=== PATIENT | female | born 2005 | race Caucasian/White ===

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

== ENCOUNTER 2023-01-05 16:10 | Emergency (ER) | payer MEDICAID, SELFPAY ==
[2023-01-05 16:26] VITALS: BP 115/70; PULSE 54; RESP 16; TEMP 36.6; O2SAT 99; BMI 17.8
[2023-01-05 17:24] LABS: Basophils % 0.4 %; Eosinophils # 0.2 10^3/uL (0.0-0.8); Eosinophils % 1.7 %; Hematocrit 38.5 % (37.0-47.0); Hemoglobin 12.5 g/dL (11.5-15.3); Lymphocytes # 1.3 10^3/uL (1.5-6.5); Mean Corpuscular HGB Conc 32.5 g/dL (30.0-36.0); Mean Corpuscular Volume 89.3 fl (81-99); Mean Platelet Volume 11.3 fL (7.4-10.4); Monocytes # 0.6 10^3/uL (0.2-0.9); Monocytes % 6.5 %; Neutrophils # 6.92 10^3/uL (1.8-8.0); Neutrophils % 77.2 %; Nucleated Red Blood Cells % 0 %; Platelet Count 226 10^3/cmm (130-400); Red Blood Count 4.31 10^6/uL (4.1-5.3)
--- NOTE | 2023-01-05 17:34 | USR_ITS ---
PROCEDURE INFORMATION: Exam: US Nonobstetric Pelvis; Complete Exam date and time: 01/05/2023 5:44 PM Age: 17 years old Clinical indication: Pain; Other: Menstral cramping; Additional info: Pelvic cramping pain on period LABS AND CLINICAL REPORTS: Last menstrual period start date: 01/02/2023 TECHNIQUE: Imaging protocol: Transabdominal pelvic nonobstetric ultrasound. Complete exam. Real time ultrasound with image documentation. COMPARISON: No relevant prior studies available. FINDINGS: Uterus: Uterus is normal. Endometrial stripe is normal. Right ovary/adnexa: Ovary is normal. No mass. Normal blood flow. Left ovary/adnexa: Ovary is normal. No mass. Normal blood flow. Intraperitoneal space: No intraperitoneal fluid. Urinary bladder: Normal. US/US pelvic complete* [id number] IMPRESSION: No acute findings.
--- NOTE | 2023-01-05 17:37 | ED_ITS ---
HPI - Abdominal Pain General: Chief Complaint: Abdominal Pain Stated Complaint: lower abd pain Time Seen by Provider: 01/05/23 17:20 History of Present Illness: Pt is a 17 y/o Female who comes to the ED with Pelvic cramping pain. Pt started period 01/02/23. Patient states she usually has painful periods but states that this 1 has been worse than previous ones. Patient says her menstrual periods come around every month and she states they last for approximately 1 week. Denies any heavy bleeding during current menstrual period. She states that her cramping pain is worse than its been in the past and was not improving with Tylenol and Motrin. Patient did take another dose of Motrin before coming to the ED and now she states her cramping pain is a 3 out of 10. Denies any fevers, nausea/vomiting, other abdominal pain, heavy bleeding, dysuria, hematuria, blood in stool, constipation or diarrhea. Associated Symptoms: Denies chills, constipation, diarrhea, dysuria, fever(s), hematochezia, hematuria, nausea and vomiting Review of Systems Const: Denies: fever(s), chills or fatigue Eyes: Denies: change in vision or eye discomfort ENMT: Denies: throat pain, odynophagia, nasal discharge or nasal congestion Card: Denies: chest pain, palpitations, edema, swelling of feet/ankles, dyspnea on exertion or orthopnea Resp: Denies: dyspnea, productive cough or non-productive cough GI: Denies: abdominal pain, nausea, vomiting, diarrhea, constipation or hematochezia : Reports: vaginal bleeding (On menstrual period-normal bleeding) and dysmenorrhea; Denies: flank pain, dysuria, hematuria or change in menstrual flow Musc: Denies: neck pain, back pain or extremity swelling Skin/Breast: Denies: rash or new lesions Neuro: Denies: headache(s), numbness in extremities or weakness in extremities [facility] ED PFSH: Medical History (Updated 01/06/23 @ 00:56 by LINDA Herndon) No pertinent family history Surgical History (Updated 01/06/23 @ 00:56 by LINDA Herndon) No pertinent past surgical history Physical Exam Const: COMMON NORMALS: patient oriented x3 HENMT: COMMON NORMALS: normocephalic HEAD & SCALP: normocephalic MOUTH: Normal oral and palatal mucosa present THROAT: posterior oropharynx normal and uvula midline Neck/C-Spine: COMMON NORMALS: supple GENERAL: Yes normal visual inspection Resp: COMMON NORMALS: normal respiratory effort, No retractions, No use of accessory muscles and clear to auscultation bilaterally AUSCULTATION: clear t o auscultation bilaterally Cardio: COMMON NORMALS: regular rate, regular rhythm, S1 normal heart sound present, S2 normal heart sound present, No gallops present (Cardio), No clicks present (Cardio), No murmurs present (Cardio) and Peripheral pulses 2+ throughout RATE: regular rate RHYTHM: regular rhythm HEART SOUNDS: S1 normal heart sound present and S2 normal heart sound present PERIPHERAL PULSES: Peripheral pulses 2+ throughout GI: COMMON NORMALS: Normal to inspection, nondistended, normoactive bowel sounds present, Soft to palpation, non-tender and no masses PALPATION: Yes Soft to palpation : COMMON NORMALS: Yes no CVA tenderness BLADDER/KIDNEY EXAM: Yes no CVA tenderness Back/Pelvis: COMMON NORMALS: no CVA tenderness Extremity: COMMON NORMALS: normal to inspection Neuro: COMMON NORMALS: patient oriented x3 GAIT: Yes Normal gait present Skin: GENERAL SKIN EXAM: dry skin Course Vital Signs: Vital signs: Vital Signs Temperature 97.9 F 01/05/23 16:26 Pulse Rate 54 L 01/05/23 16:26 Respiratory Rate 16 01/05/23 16:26 Blood Pressure 115/70 01/05/23 16:26 Pulse Oximetry 99 01/05/23 16:26 Oxygen Delivery Me thod Room Air 01/05/23 16:26 MDM - Abdominal Pain Medical Decision Making Pt is a 17 y/o Female who comes to the ED with Pelvic cramping pain. Pt started period 01/02/23. Patient states she usually has painful periods but states that this 1 has been worse than previous ones. Patient says her menstrual periods come around every month and she states they last for approximately 1 week. Denies any heavy bleeding during current menstrual period. She states that her cramping pain is worse than its been in the past and was not improving with Tylenol and Motrin. Patient did take another dose of Motrin before coming to the ED and now she states her cramping pain is a 3 out of 10. Denies any fevers, nausea/vomiting, other abdominal pain, heavy bleeding, dysuria, hematuria, blood in stool, constipation or diarrhea. Vitals are stable. Patient appears nontoxic in no acute distress or pain. Exam is benign. Labs are all unremarkable. Ultrasound of pelvis shows no acute findings. Patient was diagnosed with dysmenorrhea and stable for discharge home. I placed an order with case management for patient be referred to women's health clinic for further evaluation of dysmenorrhea. Return to ED precautions given. Patient understood and agreed with plan. Lab Data I reviewed the patient's lab results. 01/05/23 17:00 01/05/23 17:00 Labs/Radiology: Radiology Impressions Pelvis Ultrasound 01/05/23 17:34 IMPRESSION: No acute findings. Laboratory Results WBC 9.0 10^3/uL (4.5-13.0) 01/05/23 17:00 RBC 4.31 10^6/uL (4.1-5.3) 01/05/23 17:00 Hgb 12.5 g/dL (11.5-15.3) 01/05/23 17:00 Hct 38.5 % (37.0-47.0) 01/05/23 17:00 MCV 89.3 fl (81-99) 01/05/23 17:00 MCH 29.0 pg (28.0-34.0) 01/05/23 17:00 MCHC 32.5 g/dL (30.0-36.0) 01/05/23 17:00 RDW 12.0 % (12.1-15.1) L 01/05/23 17:00 Plt Count 226 10^3/cmm (130-400) 01/05/23 17:00 MPV 11.3 fL (7.4-10.4) H 01/05/23 17:00 Neut % (Auto) 77.2 % 01/05/23 17:00 Lymph % (Auto) 14.0 % 01/05/23 17:00 [place] % (Auto) 6.5 % 01/05/23 17:00 Eos % (Auto) 1.7 % 01/05/23 17:00 Baso % (Auto) 0.4 % 01/05/23 17:00 Neut # (Auto) 6.92 10^3/uL (1.8-8.0) 01/05/23 17:00 Lymph # (Auto) 1.3 10^3/uL (1.5-6.5) L 01/05/23 17:00 [place] # (Auto) 0.6 10^3/uL (0.2-0.9) 01/05/23 17:00 Eos # (Auto) 0.2 10^3/uL (0.0-0.8) 01/05/23 17:00 Baso # (Auto) 0.0 10^3/uL (0.0-0.1) 01/05/23 17:00 Nucleated RBC % (auto) 0 % 01/05/23 17:00 Nucleated RBCs # 0.0 /100WBC 01/05/23 17:00 Sodium 140 mmol/L (136-145) 01/05/23 17:00 Potassium 4.0 mmol/L (3.5-5.1) 01/05/23 17:00 Chloride 106 mmol/L (98-107) 01/05/23 17:00 Carbon Dioxide 24 mmol/L (22-29) 01/05/23 17:00 Anion Gap 14.0 (5-19) 01/05/23 17:00 BUN 7 mg/dL (6-20) 01/05/23 17:00 Creatinine 0.5 mg/dL (0.5-0.9) 01/05/23 17:00 GFR Calculation 158.9 mL/min (90-130) H 01/05/23 17:00 Glucose 95 mg/dL (65-115) 01/05/23 17:00 Calculated Osmolality 288 mOsm/kg (285-295) 01/05/23 17:00 Calcium 8.6 mg/dL (8.5-10.5) 01/05/23 17:00 Total Bilirubin 1.1 mg/dL (0.15-1.2) 01/05/23 17:00 AST 14 U/L (0-32) 01/05/23 17:00 ALT 6 U/L (0-33) 01/05/23 17:00 Alkaline Phosphatase 39 U/L (35-105) 01/05/23 17:00 Total Protein 6.9 g/dL (6.6-8.7) 01/05/23 17:00 Albumin 4.3 g/dL (3.5-5.2) 01/05/23 17:00 Globulin 2.6 g/dL (1.3-4.6) 01/05/23 17:00 HCG, Qual Negative (Negative) 01/05/23 17:00 Urine Color Yellow (Yellow) 01/05/23 17:21 Urine Appearance Sl hazy (CLEAR) A 01/05/23 17:21 Urine pH 6 (5-7) 01/05/23 17:21 Ur Specific [place] 1.025 (1.005-1.030) 01/05/23 17:21 Urine Protein Neg (Negative) 01/05/23 17:21 Urine Glucose (UA) Norm (Normal) 01/05/23 17:21 Urine Ketones 1+ (Negative) H 01/05/23 17:21 Urine Blood 3+ (Negative) H 01/05/23 17:21 Urine Nitrate Negative (Negative) 01/05/23 17:21 Urine Bilirubin Neg (Negative) 01/05/23 17:21 Urine Urobilinogen Neg mg/dL (Negative) 01/05/23 17:21 Ur Leukocyte Esterase Negative (Negative) 01/05/23 17:21 Urine RBC 10-15 /hpf (0-2) H 01/05/23 17:21 Urine WBC 0-4 /hpf (0-5) H 01/05/23 17:21 Ur Squamous Epith Cells 0-4 /hpf (0-5) H 01/05/23 17:21 Amorphous Sediment 2+ /hpf 01/05/23 17:21 Urine Bacteria 1+ /hpf (NONE) H 01/05/23 17:21 Urine Mucus Trace /hpf 01/05/23 17:21 Discharge Plan Discharge Patient Disposition: Home Clinical Impression: Primary dysmenorrhea Condition: Stable Prescriptions: No Action No Known Home Medications Discharge Orders: Discharge ED (Routine); Ordered 01/05/23 Ordered By: Antonio Zhang Referrals: Lesley Lema MD [Primary Care Provider] - Discharge Diet: Regular Discharge Activity: Resume usual activity Patient Instructions: Dysmenorrhea (ED) Activity Restrictions/Additional Instructions: Follow-up with medical provider as directed. Case management should be contacted in the next several days to set up an appointment with women's health for follow-up. Take medications as prescribed. Return to the ER or your medical provider if condition worsens. Please read and understand discharge instructions. Thank you for choosing [facility] for your healthcare needs today. Please realize this is an emergency room and that we are providing you with a medical screening exam and this may not be complete and all inclusive of all the testing and or work up that you may need to determine your ailment or severity of your illness. It is very important that you follow up as instructed or that you return to the Emergency Department should you have concerns or if your condition changes or worsens in any way. Coding Level of Care Code ED [employer] Installer for Tu Garcia
[2023-01-05 17:58] LABS: HCG, Serum Qual Negative (Negative)
[2023-01-05 18:00] LABS: Add Urine Microscopic? YES; Bilirubin Urine Neg (Negative); Blood Urine 3+ (Negative); Glucose Urine UA Norm (Normal); Ketones Urine 1+ (Negative); Leukocyte Esterase Urine Negative (Negative); Nitrate Urine Negative (Negative); Protein Urine Neg (Negative); Specific Gravity, Urine 1.025 (1.005-1.030); Urine Appearance SL Hazy (CLEAR); Urine Color Yellow (Yellow); Urobilinogen Urine Neg (Negative); pH Urine 6 (5-7)
[2023-01-05 18:01] LABS: Add Urine Culture? Yes; Amorphous Sediment Urine 2+ /hpf; Bacteria Urine 1+ /hpf; Mucus Urine TRACE /hpf; Squamous Epithelial Cell Urine 0-4 /hpf (0-5); WBC Urine 0-4 /hpf (0-5)
[2023-01-05 18:03] LABS: Alanine Aminotransferase 6 U/L (0-33); Albumin Level 4.3 g/dL (3.5-5.2); Alkaline Phosphatase 39 U/L (35-105); Aspartate Amino Transferase 14 U/L (0-32); Blood Urea Nitrogen 7 mg/dL (6-20); Calcium 8.6 mg/dL (8.5-10.5); Carbon Dioxide 24 mmol/L (22-29); Chloride 106 mmol/L (98-107); Creatinine Clr Calc Pharmacy 164.6857; Globulin 2.6 g/dL (1.3-4.6); Glomerular Filtration Rate 158.9 mL/min (90-130); Glucose 95 mg/dL (65-115); Osmolality Calculated 288 mOsm/kg (285-295); Sodium 140 mmol/L (136-145); Total Bilirubin 1.1 mg/dL (0.15-1.2); Total Protein 6.9 g/dL (6.6-8.7)
--- NOTE | 2023-01-06 09:49 | DCPLANNER ---
Addendum entered by Soila Alfred 03/02/23 11:36: Patient had a follow up appointment scheduled with [facility] - patient did not attend appointment. Addendum entered by Soila Alfred 01/11/23 11:56: Patient has a follow up appointment scheduled for Wednesday, March 01, 2023 at 2:[address] Morris at [facility]. Original Note: manager shipping had message to schedule a follow up appointment for patient with [facility]. manager shipping sent patients information to the front office staff at [facility]. Patients information will be printed and reviewed. Clinic will call patient with appointment information.
== END 2023-01-05 19:11 | disposition home or self-care (01) ==
PROVIDERS: Physician Assistant; Emergency Provider Physician Assistant; PCP Family Medicine
DX: N94.4 Primary dysmenorrhea (principal)
CPT/HCPCS: 36415; 76856; 80053; 81001; 84703; 85025; 87086; 99284

== ENCOUNTER → 2023-03-22 15:20 | Outpatient (BNVA) | payer MEDICAID, SELFPAY | PROVIDERS: PCP Family Medicine; Visit Provider Obstetrics & Gynecology | DX: R63.4 Abnormal weight loss (principal) | CPT/HCPCS: 82728; 84146; 84443; 85025 ==

== ENCOUNTER 2023-04-05 06:15 | Outpatient (CLI) | payer MEDICAID, SELFPAY ==
--- NOTE | 2023-04-05 06:26 | USR_ITS ---
PROCEDURE INFORMATION: Exam: US Nonobstetric Pelvis; Complete Exam date and time: 04/05/2023 6:37 AM Age: 17 years old Clinical indication: Pain; Dysmenorrhea; Additional info: Dysmenorrhea.No history of trauma or recent surgery is provided. TECHNIQUE: Imaging protocol: Transabdominal pelvic nonobstetric ultrasound. Complete exam. Real time ultrasound with image documentation. 61image(s) are provided. Other technique: Grayscale, color images are provided. COMPARISON: US pelvic complete* [id number] 01/05/2023 5:44 PM FINDINGS: Uterus: The uterus measures 7.5 x 5.1 x 6.2 cm. The uterine echotexture is relatively homogeneous. The endometrial stripe measures 0.65 cm. No central uterine canal fluid is appreciated. Right ovary/adnexa: The right ovary is obscured. Left ovary/adnexa: The left ovary measures 4.8 x 3.7 x 2.1 cm. Color Doppler flow is demonstrated. There are subcentimeter left ovarian follicular cystic changes present. Bowel: There is some bowel gas artifact. Intraperitoneal space: No free fluid is appreciated. Urinary bladder: Unremarkable. US/US pelvic complete* [id number] IMPRESSION: 1. The left ovary is demonstrated with color flow appreciated. The right ovary is obscured. 2. No central uterine canal or cervix level fluid collections are appreciated. 3. No free fluid or pelvic mass is appreciated.
== END 2023-04-05 06:16 | disposition home or self-care (01) ==
PROVIDERS: PCP Family Medicine; Visit Provider Obstetrics & Gynecology
DX: N94.6 Dysmenorrhea, unspecified (principal)
CPT/HCPCS: 76856

== ENCOUNTER 2023-06-12 05:52 | Emergency (ER) | payer MEDICAID, SELFPAY ==
--- NOTE | 2023-06-12 05:57 | ECG_ITS ---
[facility] Test Date: 2023-06-12 Pat Name: Ara Ugarte Department: Room: Gender: Female Adapted Physical Education Aide: : 2005 Requested By: Calvin Goetz Order Number: [id number] Cheo MD: Wandy Holman M.D. Measurements Intervals [place] Rate: 60 P: 67 ME: 141 QRS: 68 QRSD: 88 T: 43 QT: 387 QTc: 388 Interpretive Statements SINUS RHYTHM POSSIBLE RIGHT VENTRICULAR CONDUCTION DELAY [RSR (QR) IN V1/V2] No previous ECG available for comparison Electronically Signed On 06-12-2023 11:59:18 CDT by Wandy Holman M.D. [email or web address]
[2023-06-12 05:58] VITALS: BP 115/73; PULSE 60; RESP 15; TEMP 36.4; O2SAT 100; BMI 17.2
--- NOTE | 2023-06-12 06:02 | ED_ITS ---
HPI - Abdominal Pain General: Chief Complaint: Urogenital-Female Stated Complaint: Passes out\Cant Pee\Dizzy Time Seen by Provider: 06/12/23 05:56 Source: patient Mode of arrival: ambulatory Limitations: no limitations History of Present Illness: 17-year-old female who has had a history of dysmenorrhea states that she is 6 days late for her. She woke up this morning to the bathroom was having severe lower abdominal cramping states that cramping pain is a 6 out of 10 she went to the bathroom and she had had a syncopal episode she denies any chest pain denies any headache. She taken ibuprofen states her pains improved. Associated Symptoms: Reports dysuria and syncope; Denies chills, diarrhea, fever(s), nausea and vomiting Review of Systems Const: Denies: fever(s), chills, body aches or change in appetite ENMT: Denies: throat pain or dental pain Card: Reports: syncope; Denies: chest pain Resp: Denies: dyspnea GI: Reports: abdominal pain; Denies: nausea, vomiting or diarrhea : Reports: dysuria Musc: Denies: neck pain or back pain Skin/Breast: Denies: rash Neuro: Denies: headache(s) PFSH ED PFSH: Medical History No pertinent family history Surgical History No pertinent past surgical history Family History Grandmother Hypertension Grandfather Hypertension Denies family history of Colon cancer Ovarian cancer Diabetes Heart disease Hypercholesteremia Breast cancer Uterine cancer Thyroid disease Stroke Physical Exam Const: COMMON NORMALS: no acute distress, patient oriented x3 and healthy appearing HENMT: COMMON NORMALS: normocephalic and atraumatic HEAD & SCALP: normocephalic and atraumatic Eye: COMMON NORMALS: Equal, round and reactive pupils present and EOMs intact bilaterally PUPIL: Yes Equal, round and reactive pupils present Neck/C-Spine: COMMON NORMALS: full ROM and supple Chest: COMMONS NORMALS: normal inspection of the chest and normal palpation of entire chest wall Resp: COMMON NORMALS: normal respiratory effort, No retractions, No use of accessory muscles and clear to auscultation bilaterally AUSCULTATION: clear to auscultation bilaterally Cardio: COMMON NORMALS: regular rate, regular rhythm and No murmurs present (Cardio) RATE: regular rate RHYTHM: regular rhythm GI: COMMON NORMALS: Normal to inspection, nondistended, normoactive bowel sounds present, Soft to palpation, non-tender and no masses PALPATION: Yes Soft to palpation Extremity: COMMON NORMALS: normal to inspection and full ROM Neuro: COMMON NORMALS: patient oriented x3, moves all extremities and no focal motor deficits Psych: COMMON NORMALS: mental status grossly normal, Normal thought process present and cooperative THOUGHT PROCESS: Normal thought process present Skin: COMMON NORMALS: no rashes or lesions noted and no wounds GENERAL SKIN EXAM: no rashes or lesions noted Course Vital Signs: Vital signs: Vital Signs Temperature 97.6 F 06/12/23 05:58 Pulse Rate 65 06/12/23 07:33 Respiratory Rate 16 06/12/23 06:17 Blood Pressure 101/79 06/12/23 07:33 Pulse Oximetry 100 06/12/23 07:33 Oxygen Delivery Me thod Room Air 06/12/23 07:33 MDM - Abdominal Pain Medical Decision Making Patient presents for abdominal pain CT does show a large pelvic mass I spoke to Dr. Morris she is to follow-up with him she is return if worsening she underst ands agrees to plan. Medical Records I reviewed the patient's medical records. Lab Data I reviewed the patient's lab results. 06/12/23 06:05 06/12/23 06:05 Labs/Radiology: Radiology Impressions Abdomen/Pelvis CT 06/12/23 06:51 IMPRESSION: 1. 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 2. Mildly prominent ovary in the left anterior pelvis with involuting follicle apparent. Laboratory Results WBC 9.40 10^3/uL (4.5-13.0) 06/12/23 06:05 RBC 4.58 10^6/uL (3.85-5.65) 06/12/23 06:05 Hgb 13.40 g/dL (12.4-14.8) 06/12/23 06:05 Hct 40.9 % (36-47) 06/12/23 06:05 MCV 89.3 fl (85-98) 06/12/23 06:05 MCH 29.3 pg (27-33) 06/12/23 06:05 MCHC 32.8 g/dL (30-55) 06/12/23 06:05 RDW 12.7 % (12.1-15.1) 06/12/23 06:05 Plt Count 186 10^3/cmm (157-399) 06/12/23 06:05 MPV 11.6 fL (7.4-10.4) H 06/12/23 06:05 Neut % (Auto) 59.3 % 06/12/23 06:05 Lymph % (Auto) 28.0 % 06/12/23 06:05 [place] % (Auto) 8.6 % 06/12/23 06:05 Eos % (Auto) 3.4 % 06/12/23 06:05 Baso % (Auto) 0.5 % 06/12/23 06:05 Neut # (Auto) 5.57 10^3/uL (1.8-8.0) 06/12/23 06:05 Lymph # (Auto) 2.6 10^3/uL (1.5-6.5) 06/12/23 06:05 [place] # (Auto) 0.8 10^3/uL (0.2-0.9) 06/12/23 06:05 Eos # (Auto) 0.3 10^3/uL (0.0-0.8) 06/12/23 06:05 Baso # (Auto) 0.1 10^3/uL (0.0-0.1) 06/12/23 06:05 Nucleated RBC % (auto) 0 % 06/12/23 06:05 Nucleated RBCs # 0.0 /100WBC 06/12/23 06:05 Sodium 137 mmol/L (136-145) 06/12/23 06:05 Potassium 3.7 mmol/L (3.5-5.1) 06/12/23 06:05 Chloride 103 mmol/L (98-107) 06/12/23 06:05 Carbon Dioxide 26 mmol/L (22-29) 06/12/23 06:05 Anion Gap 11.7 (5-19) 06/12/23 06:05 BUN 12 mg/dL (6-20) 06/12/23 06:05 Creatinine 0.7 mg/dL (0.5-0.9) 06/12/23 06:05 GFR Calculation 107.8 mL/min (90-130) 06/12/23 06:05 Glucose 89 mg/dL (65-115) 06/12/23 06:05 Calculated Osmolality 283 mOsm/kg (285-295) L 06/12/23 06:05 Calcium 8.8 mg/dL (8.5-10.5) 06/12/23 06:05 Total Bilirubin 1.1 mg/dL (0.15-1.2) 06/12/23 06:05 AST 13 U/L (0-32) 06/12/23 06:05 ALT 7 U/L (0-33) 06/12/23 06:05 Alkaline Phosphatase 37 U/L (35-105) 06/12/23 06:05 Total Protein 7.3 g/dL (6.6-8.7) 06/12/23 06:05 Albumin 4.4 g/dL (3.5-5.2) 06/12/23 06:05 Globulin 2.9 g/dL (1.3-4.6) 06/12/23 06:05 HCG, Qual Negative (Negative) 06/12/23 06:05 Urine Color Yellow (Yellow) 06/12/23 06:38 Urine Appearance Clear (CLEAR) 06/12/23 06:38 Urine pH 5 (5-7) 06/12/23 06:38 Ur Specific [place] 1.020 (1.005-1.030) 06/12/23 06:38 Urine Protein Neg (Negative) 06/12/23 06:38 Urine Glucose (UA) Norm (Normal) 06/12/23 06:38 Urine Ketones Negative (Negative) 06/12/23 06:38 Urine Blood Neg (Negative) 06/12/23 06:38 Urine Nitrate Negative (Negative) 06/12/23 06:38 Urine Bilirubin Neg (Negative) 06/12/23 06:38 Urine Urobilinogen Norm mg/dL (Negative) 06/12/23 06:38 Ur Leukocyte Esterase Negative (Negative) 06/12/23 06:38 All radiology interpretation(s) finalized by discharge EKG Data EKG 1: I personally reviewed and interpreted this EKG as follows: EKG interpretation date: 06/12/23 EKG interpretation time: 06:00 Interpretation: nsr hr [address] or t wave abnormalities qrs 88 qtc 388 Discharge Plan Discharge Patient Disposition: Home Clinical Impression: Pelvic pain, Pelvic mass Condition: Stable Prescriptions: No Action ibuprofen 800 mg tablet 800 mg PO TID PRN (Reason: dysmenorrhea,pelvic pain) Discharge Orders: Discharge ED (Routine); Ordered 06/12/23 Ordered By: Calvin Goetz Referrals: Brady Morris MD [Physician] - 1-3 days Lesley Lema MD [Primary Care Provider] - Discharge Diet: Advance as tolerated Discharge Activity: Resume usual activity Patient Instructions: Pelvic Pain (ED) Coding Level of Care Code ED Home Economist Consumer Service for Tu Garcia
[2023-06-12 06:14] LABS: Basophils # 0.1 10^3/uL (0.0-0.1); Basophils % 0.5 %; Eosinophils # 0.3 10^3/uL (0.0-0.8); Eosinophils % 3.4 %; Hematocrit 40.9 % (36-47); Lymphocytes # 2.6 10^3/uL (1.5-6.5); Mean Corpuscular HGB Conc 32.8 g/dL (30-55); Mean Corpuscular Hemoglobin 29.3 pg (27-33); Mean Corpuscular Volume 89.3 fl (85-98); Mean Platelet Volume 11.6 fL (7.4-10.4); Monocytes # 0.8 10^3/uL (0.2-0.9); Monocytes % 8.6 %; Neutrophils # 5.57 10^3/uL (1.8-8.0); Neutrophils % 59.3 %; Nucleated Red Blood Cells % 0 %; Platelet Count 186 10^3/cmm (157-399); Red Blood Count 4.58 10^6/uL (3.85-5.65); Red Cell Distribution Width 12.7 % (12.1-15.1)
[2023-06-12] MEDS: sodium chloride 0.9% 1,000 ML 999 ML IV (06:14)
[2023-06-12 06:17] VITALS: BP 115/73; RESP 16; O2SAT 100
[2023-06-12 06:27] LABS: HCG, Serum Qual Negative (Negative)
[2023-06-12 06:36] LABS: Alanine Aminotransferase 7 U/L (0-33); Albumin Level 4.4 g/dL (3.5-5.2); Alkaline Phosphatase 37 U/L (35-105); Anion Gap 11.7 (5-19); Aspartate Amino Transferase 13 U/L (0-32); Blood Urea Nitrogen 12 mg/dL (6-20); Calcium 8.8 mg/dL (8.5-10.5); Carbon Dioxide 26 mmol/L (22-29); Chloride 103 mmol/L (98-107); Globulin 2.9 g/dL (1.3-4.6); Glomerular Filtration Rate 107.8 mL/min (90-130); Glucose 89 mg/dL (65-115); Osmolality Calculated 283 mOsm/kg (285-295); Potassium 3.7 mmol/L (3.5-5.1); Sodium 137 mmol/L (136-145); Total Bilirubin 1.1 mg/dL (0.15-1.2); Total Protein 7.3 g/dL (6.6-8.7)
[2023-06-12 06:44] LABS: Add Urine Microscopic? NO; Charge for UA Resulting for Rev
[2023-06-12 06:45] LABS: Urine Appearance Clear (CLEAR); Urine Color Yellow (Yellow); pH Urine 5 (5-7)
[2023-06-12 06:46] LABS: Bilirubin Urine Neg (Negative); Blood Urine Neg (Negative); Glucose Urine UA Norm (Normal); Ketones Urine Negative (Negative); Leukocyte Esterase Urine Negative (Negative); Nitrate Urine Negative (Negative); Protein Urine Neg (Negative); Urobilinogen Urine Norm (Negative)
--- NOTE | 2023-06-12 06:51 | CTR_ITS ---
PROCEDURE INFORMATION: Exam: CT Abdomen And Pelvis With Contrast Exam date and time: 06/12/2023 7:11 AM Age: 17 years old Clinical indication: Abdominal pain; Additional info: Abd pain TECHNIQUE: Imaging protocol: Computed tomography of the abdomen and pelvis with contrast. Radiation optimization: All CT scans at this facility use at least one of these dose optimization techniques: automated exposure control; mA and/or kV adjustment per patient size (includes targeted exams where dose is matched to clinical indication); or iterative reconstruction. Contrast material: OMNI 350; Contrast volume: 80 ml; Contrast route: INTRAVENOUS (IV); REPORTING DATA: Count of CT and Cardiac NM exams in prior 12 months: This patient has received 0 known CTs and 0 known cardiac nuclear medicine studies in the 12 months prior to the current study. COMPARISON: US pelvic complete* [id number] 04/05/2023 6:37 AM RADIATION DOSE METRICS: Total DLP (mGy-cm): 336.52 FINDINGS: Liver: Normal. No mass. Gallbladder and bile ducts: Normal. No calcified stones. No ductal dilation. Pancreas: Normal. No ductal dilation. Spleen: Normal. No splenomegaly. Adrenal glands: Normal. No mass. Kidneys and ureters: Normal. No hydronephrosis. Stomach and bowel: Unremarkable. No obstruction. No mucosal thickening. Appendix: No evidence of appendicitis. Intraperitoneal space: Unremarkable. No free air. No significant fluid collection. Vasculature: Unremarkable. No abdominal aortic aneurysm. Lymph nodes: Unremarkable. No enlarged lymph nodes. Urinary bladder: Unremarkable as visualized. Reproductive: Unremarkable uterus. Very large mass in the left posterior adnexa which contains multiple tissue elements including fat, soft tissue, calcifications. The mass measures about 10.8 cm x 8.4 cm x 7.4 cm. A mildly enlarged ovary is visible in the anterior left pelvis with involuting follicle. Ovary measures 4.3 cm x 4.3 cm x 2.4 cm. Bones/joints: Unremarkable. No acute fracture. Soft tissues: Unremarkable. CT/CT abdomen pelvis w con* [id number] IMPRESSION: 1. 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 2. Mildly prominent ovary in the left anterior pelvis with involuting follicle apparent.
[2023-06-12] MEDS: iohexol 350 mg/mL 500 mL Btl (per mL) IV (07:16)
[2023-06-12 07:33] VITALS: BP 101/79; PULSE 65; O2SAT 100
--- NOTE | 2023-06-13 08:22 | PC.SOCIAL ---
OBGYN Referral Referral message sent to clinic at this time. Clinic to contact patient with appt date/time.
== END 2023-06-12 08:09 | disposition home or self-care (01) ==
PROVIDERS: Emergency Provider Emergency Medicine; PCP Family Medicine
DX: R10.2 Pelvic and perineal pain (principal); R19.00 Intra-abdominal and pelvic swelling, mass and lump, unspecified site
CPT/HCPCS: 74177; 80053; 81003; 84703; 85025; 93005; 99285; J7030; Q9967

== ENCOUNTER → 2023-06-13 11:05 | Outpatient (BNVA) | payer MEDICAID, SELFPAY | PROVIDERS: PCP Family Medicine; Visit Provider Obstetrics & Gynecology | DX: R10.2 Pelvic and perineal pain (principal); R19.09 Other intra-abdominal and pelvic swelling, mass and lump | CPT/HCPCS: 76856 ==

== ENCOUNTER 2023-06-14 18:44 | Observation (INO) | payer MEDICAID, SELFPAY ==
[2023-06-14] VITALS (20 sets, daily range): BP systolic 103–122; BP diastolic 50–73; PULSE 57–112; RESP 13–19; TEMP 36.6–37.5; O2SAT 96–100; BMI 17.2
[2023-06-14] MEDS: sodium chloride 0.9% 500 ML IV (11:20)
[2023-06-14 11:45] LABS: Basophils % 0.5 %; Eosinophils # 0.2 10^3/uL (0.0-0.8); Eosinophils % 2.6 %; Hematocrit 38.2 % (36-47); Lymphocytes # 1.7 10^3/uL (1.5-6.5); Lymphocytes % 22.3 %; Mean Platelet Volume 12.3 fL (7.4-10.4); Monocytes # 0.5 10^3/uL (0.2-0.9); Neutrophils # 4.99 10^3/uL (1.8-8.0); Neutrophils % 67.5 %; Nucleated Red Blood Cells % 0 %; Platelet Count 186 10^3/cmm (157-399); Red Blood Count 4.34 10^6/uL (3.85-5.65); Red Cell Distribution Width 12.7 % (12.1-15.1)
--- NOTE | 2023-06-14 11:45 | ANES.PREANE2 ---
Pre-Anesthetic Assessment Height/Weight: Height 1.7 m Weight 49.895 kg Temp Pulse Resp BP Pulse Ox O2 Del Method 98.5 F 67 18 103/61 99 Room Air 06/14/23 11:16 06/14/23 11:16 06/14/23 11:16 06/14/23 11:16 06/14/23 11:16 06/14/23 11:37 Preop Diagnosis: Left ovarian mass/pelvic mass Operation Date: 06/14/23 12:30 Proposed Procedures p Diagnostic laparoscopy 36597,R19.10(Not Applicable) - Brady Morris MD Familial anesthetic complications: None Was Beta Alexsandra taken within 24 hours: N/A Was Clonidine taken within 24 hours: N/A Last intake: Intake Last Liquid Date 06/13/23 Last Liquid Time 22:00 Last Solid Date 06/13/23 Last Solid Time 21:00 Social No alcohol and No tobacco Exam alert, oriented x 3, clear to auscultation bilaterally and regular rate & rhythm Airway Mallampati: Class II Dentition: full Anesthetic Plan ASA status: 1 Anesthesia: General Risk of > 500 ml blood loss (7ml/kg in children): No Medications/Allergies Home Medications Medication Instructions Recorded Confirmed Last Taken Type ibuprofen 800 mg tablet 800 mg PO TID PRN 06/12/23 06/13/23 06/13/23 History dysmenorrhea,pelvic pain Allergies Allergy/AdvReac Type Severity Reaction Status Date / Time No Known Allergies Allergy Verified 06/13/23 13:17 Current Medications Generic Name Dose Route Start Last Admin Trade Name Freq PRN Reason Stop Dose Admin Sodium Chloride 500 mls @ 500 mls/hr 06/14/23 10:52 06/14/23 11:20 Sodium Chloride 0.9% IV 06/14/23 11:51 500 mls/hr ONCE ONE Administration PFS Anesthesia Medical History No pertinent family history Surgical History No pertinent past surgical history Family History Grandmother Hypertension Grandfather Hypertension Denies family history of Colon cancer Ovarian cancer Diabetes Heart disease Hypercholesteremia Breast cancer Uterine cancer Thyroid disease Stroke Female Reproductive History Date of last menstrual period: 05/09/23 Data Anesthesia 06/14/23 11:20 06/14/23 11:20 Short CBC 06/14/23 Range/Units 11:20 WBC 7.40 (4.5-13.0) 10^3/uL Hgb 12.60 (12.4-14.8) g/dL Hct 38.2 (36-47) % MCV 88.0 (85-98) fl Plt Count 186 (157-399) 10^3/cmm Neut % (Auto) 67.5 % Neut # (Auto) 4.99 (1.8-8.0) 10^3/uL Cardiac Studies: No Data to Display
[2023-06-14 12:01] LABS: Bilirubin Urine Neg (Negative); Blood Urine Neg (Negative); Glucose Urine UA Norm (Normal); Ketones Urine Negative (Negative); Nitrate Urine Negative (Negative); Protein Urine Neg (Negative); Specific Gravity, Urine 1.015 (1.005-1.030); Urine Appearance Clear (CLEAR); Urine Color Yellow (Yellow); Urobilinogen Urine Norm (Negative); pH Urine 6 (5-7)
[2023-06-14 12:01] LABS: Alanine Aminotransferase < 5 U/L (0-33); Albumin Level 4.3 g/dL (3.5-5.2); Alkaline Phosphatase 36 U/L (35-105); Anion Gap 13.9 (5-19); Aspartate Amino Transferase 16 U/L (0-32); Blood Urea Nitrogen 7 mg/dL (6-20); Calcium 8.7 mg/dL (8.5-10.5); Carbon Dioxide 24 mmol/L (22-29); Chloride 105 mmol/L (98-107); Globulin 2.9 g/dL (1.3-4.6); Glomerular Filtration Rate 158.9 mL/min (90-130); Glucose 88 mg/dL (65-115); Osmolality Calculated 285 mOsm/kg (285-295); Potassium 3.9 mmol/L (3.5-5.1); Sodium 139 mmol/L (136-145); Total Bilirubin 1.8 mg/dL (0.15-1.2); Total Protein 7.2 g/dL (6.6-8.7)
[2023-06-14 12:02] LABS: Add Urine Microscopic? YES; Leukocyte Esterase Urine 1+ (Negative)
[2023-06-14 12:06] LABS: Add Urine Culture? No; Bacteria Urine TRACE /hpf; Mucus Urine TRACE /hpf; Renal Epithelial Cells Urine RARE /hpf
[2023-06-14] MEDS: sodium chloride 0.9% 1,000 ML 30 ML IV (12:35)
[2023-06-14 14:50] LABS: OR HCG Qualitative Urine Negative (Negative)
--- NOTE | 2023-06-14 14:50 | W.PM.OPSUD ---
Surgery/Procedure H&P Update DATE OF PROCEDURE: June 14, 2023 DATE H&P PERFORMED: 06/14/23 H&P UPDATE INFORMATION: I have reviewed H&P completed within last 30 days, I have examined patient prior to procedure and No changes to prior documentation PREOP DIAGNOSIS: Left ovarian mass/pelvic mass PLANNED PROCEDURE: Operation Date: 06/14/23 12:30 Proposed Procedures p Diagnostic laparoscopy 96447,R19.10(Not Applicable) - Brady Morris MD
[2023-06-14] MEDS: ceFAZolin 2,000 MG in sodium chloride 0.9% (plus) 50 ML 100 MG IV (15:18)
[2023-06-14] MEDS: BUPivacaine 0.5% INJ 10 mL INJECTION ×2 (15:55→16:34)
[2023-06-14] MEDS: BUPivacaine liposome 13.3 mg/mL SDV 10 mL 266 MG INFILTRATI (16:35)
--- NOTE | 2023-06-14 17:16 | P.OP_ITS ---
Operative Report Date of procedure: June 14, 2023 Pre-op diagnosis: Pelvic mass Left ovarian dermoid Post-op diagnosis: Right ovarian dermoid cyst Post-op findings: Enlarged twisted right ovarian mass Procedure done: Diagnostic laparoscopy Laparotomy Right oophorectomy Fulguration of endometriosis lesions Specimens removed/disposition: Right ovarian dermoid Pathology: Dermoid cyst: Surgeon: Brady Morris MD Estimated blood loss (mL): 50 IV fluids (mL): 2,600 Urine output (mL): 200 Procedure: DESCRIPTION OF PROCEDURE: After informed consent, the patient was taken to the operating room where general anesthesia was administered. The patient was examined under anesthesia and found to have a normal uterus with normal adnexa. She was placed in the dorsal lithotomy position and prepped and draped in sterile fashion. Pre- Procedure Time-Out verifying the correct patient identity, correct procedure verified with consent, correct site and side, correct patient position, availability of correct implants and any special equipment or requirements was performed and acknowledge by the OR team. A weighted speculum was placed in the vagina, and the anterior lip of cervix was grasped with the single toothed tenaculum. A uterine manipulator was advanced into the endocervical. Tenaculum was removed after uterine manipulator was secured. The speculum was removed from the vagina. An intraumbilical incision was made with a scalpel. While tenting up on the a bdomen, a Verres needle with sleeve was admitted into the intra-abdominal cavity. A saline drop test was performed and noted to be within normal limits. Pneumoperitoneum was attained with 4 liters of carbon dioxide. The Verres needle was removed. A 5 mm trocar and sleeve were admitted into the abdomen and laparoscopic confirmation of location was achieved, A second incision was made 3 cm above the symphysis pubis, and a 5 mm trocar and sleeve were admitted into the abdomen under direct, laparoscopic visualization without complication. A survey revealed normal abdominal anatomy but pelvic survey shows normal uterus, left ovary and tube. Then an enlarged right ovarian mass in the pelvic cavity with twisted right fallopian tube. Endometriosis lesions noted on right uterosacral ligament and anteriorly on the left broad ligaments. Due to size of the right ovarian mass the decision to proceed with a laparotomy for removal of the right ovary. A Pfannenstiel incision was made 2 cm above the symphysis pubis and extended sharply to the rectus fascia. The fascial incision was bilaterally incised with curved Hernandez scissors, and the rectus sheath was superiorly and interiorly by sharp and blunt dissection. The peritoneum was grasped between two Felisha clamps, elevated, and incised with a scalpel. The pelvis was examined with the findings noted above. and the abdomen was thoroughly explored. An James retractor was placed into the incision, and the bowel was packed away with moist laparotomy sponges. The right ovary was exteriorized and fallopian tube untwisted. With the Enseal device the ovarian mass excised. Then the endometriosis lesions were fulgurated. The pelvis was copiously irrigated with warm normal saline, and all sponges and instruments were removed. The parietal peritoneum was closed with running #2-0 Vicryl. The fascia was closed with running #0 Vicryl. The incision was infiltrated with Exparel for pain management. The skin was closed with INSORB's subcuticular jordan. Sponge, lap, needle, and instrument counts were correct times three. The patient was taken to the recovery room, awake and in stable condition.
[2023-06-14] MEDS: meperidine 50 mg/mL INJ 12.5 MG IVP (17:45)
--- NOTE | 2023-06-14 18:00 | PC.NURSE ---
Assumed care of patient @ 0523 PAUL Maza @ bedside for TAP block. Time out completed
[2023-06-14] MEDS: dextrose 5%-lactated ringers 1,000 ML 125 ML IV (19:46)
[2023-06-14] MEDS: docusate sodium 100 mg Capsule PO (19:46)
[2023-06-14] MEDS: HYDROcodone-acetaminophen 5-325 mg Tablet PO (19:47)
[2023-06-14] MEDS: ketorolac 30 mg/mL INJ IVP (22:50)
[2023-06-15] MEDS: HYDROcodone-acetaminophen 5-325 mg Tablet PO ×2 (01:29→11:47)
[2023-06-15 01:45] VITALS: BP 104/56; PULSE 83; RESP 16; TEMP 37.5; O2SAT 97
[2023-06-15 03:00] VITALS: TEMP 37.4
[2023-06-15] MEDS: dextrose 5%-lactated ringers 1,000 ML 125 ML IV (03:28)
[2023-06-15 03:55] VITALS: BP 99/57; PULSE 62; RESP 17; TEMP 37.2
[2023-06-15] MEDS: ketorolac 30 mg/mL INJ IVP ×2 (05:13→11:10)
[2023-06-15 05:40] LABS: Hematocrit 33.5 % (36-47); Mean Corpuscular HGB Conc 33.1 g/dL (30-55); Mean Corpuscular Hemoglobin 29.4 pg (27-33); Mean Corpuscular Volume 88.6 fl (85-98); Mean Platelet Volume 11.9 fL (7.4-10.4); Platelet Count 171 10^3/cmm (157-399); Red Blood Count 3.78 10^6/uL (3.85-5.65); Red Cell Distribution Width 12.4 % (12.1-15.1); White Blood Count 12.71 10^3/uL (4.5-13.0)
--- NOTE | 2023-06-15 09:08 | P.DS_ITS ---
Discharge Providers CHOCOLATE REFINING ROLLER Date of Admission: 06/14/23 18:44 Date of Discharge: 06/15/23 Attending Provider at Admission: Brady Morris MD Attending Provider at Discharge: Brady Morris MD Primary CHOCOLATE REFINING ROLLER: Brady Morris MD Primary Care Provider: Lesley Lema MD Reason for Visit Reason for Visit: Pelvic mass, pelvic pain Hospital Course Hospital Course Mr. Ugarte 17-year-old female G0, P0 with pelvic mass and pelvic pain mesuring greater than 10 cm. Diagnostic laparoscopy was performed and an enlarged right ovarian mass was identified. A laparotomy was performed to excise the right ovarian mass. Closer examination the mass appeared to be a dermoid tumor and It was sent for pathology. Overnight postop observation was uneventful. He is afebrile hemodynamically stable. Tolerating diet well. Ambulating without difficulty. She was counseled regarding pelvic rest for 6 weeks (no sex, no tampons, no vaginal douches). Return to the emergency room if any fever, increased bleeding or pain. Physical Exam Narrative: GA: Alert and oriented ?3. HEENT: WNL. Heart: Regular rate and rhythm. Lungs: Clear to auscultation bilaterally. Abdomen: Bowel sounds present, nontender, minimal tenderness, incision clean and dry, no redness, pain or edema. BUSINESS EDITOR: No bleeding. Extremities: No edema, no cyanosis, no calves pain. Urinary Catheter Management: Paz: Cath Placed During This Visit: yes Urinary Catheter Date of Insertion: 06/14/23 Urinary Catheter Time of Insertion: 15:35 History History History 0 Term Miscarriages/Ectopic Living Children Discharge Data Studies Completed and Pending Pending at discharge Category Date Time Status Pathology: Surgical [PTH] Routine Pth 06/14/23 16:55 Received Laboratory Results WBC 12.71 10^3/uL (4.5-13.0) 06/15/23 05:20 RBC 3.78 10^6/uL (3.85-5.65) L 06/15/23 05:20 Hgb 11.10 g/dL (12.4-14.8) L 06/15/23 05:20 Hct 33.5 % (36-47) L 06/15/23 05:20 MCV 88.6 fl (85-98) 06/15/23 05:20 MCH 29.4 pg (27-33) 06/15/23 05:20 MCHC 33.1 g/dL (30-55) 06/15/23 05:20 RDW 12.4 % (12.1-15.1) 06/15/23 05:20 Plt Count 171 10^3/cmm (157-399) 06/15/23 05:20 MPV 11.9 fL (7.4-10.4) H 06/15/23 05:20 Neut % (Auto) 67.5 % 06/14/23 11:20 Lymph % (Auto) 22.3 % 06/14/23 11:20 [place] % (Auto) 7.0 % 06/14/23 11:20 Eos % (Auto) 2.6 % 06/14/23 11:20 Baso % (Auto) 0.5 % 06/14/23 11:20 Neut # (Auto) 4.99 10^3/uL (1.8-8.0) 06/14/23 11:20 Lymph # (Auto) 1.7 10^3/uL (1.5-6.5) 06/14/23 11:20 [place] # (Auto) 0.5 10^3/uL (0.2-0.9) 06/14/23 11:20 Eos # (Auto) 0.2 10^3/uL (0.0-0.8) 06/14/23 11:20 Baso # (Auto) 0.0 10^3/uL (0.0-0.1) 06/14/23 11:20 Nucleated RBC % (auto) 0 % 06/14/23 11:20 Nucleated RBCs # 0.0 /100WBC 06/14/23 11:20 Sodium 139 mmol/L (136-145) 06/14/23 11:20 Potassium 3.9 mmol/L (3.5-5.1) 06/14/23 11:20 Chloride 105 mmol/L (98-107) 06/14/23 11:20 Carbon Dioxide 24 mmol/L (22-29) 06/14/23 11:20 Anion Gap 13.9 (5-19) 06/14/23 11:20 BUN 7 mg/dL (6-20) 06/14/23 11:20 Creatinine 0.5 mg/dL (0.5-0.9) 06/14/23 11:20 GFR Calculation 158.9 mL/min (90-130) H 06/14/23 11:20 Glucose 88 mg/dL (65-115) 06/14/23 11:20 Calculated Osmolality 285 mOsm/kg (285-295) 06/14/23 11:20 Calcium 8.7 mg/dL (8.5-10.5) 06/14/23 11:20 Total Bilirubin 1.8 mg/dL (0.15-1.2) H 06/14/23 11:20 AST 16 U/L (0-32) 06/14/23 11:20 ALT < 5 U/L (0-33) 06/14/23 11:20 Alkaline Phosphatase 36 U/L (35-105) 06/14/23 11:20 Total Protein 7.2 g/dL (6.6-8.7) 06/14/23 11:20 Albumin 4.3 g/dL (3.5-5.2) 06/14/23 11:20 Globulin 2.9 g/dL (1.3-4.6) 06/14/23 11:20 Urine Color Yellow (Yellow) 06/14/23 11:04 Urine Appearance Clear (CLEAR) 06/14/23 11:04 Urine pH 6 (5-7) 06/14/23 11:04 Ur Specific [place] 1.015 (1.005-1.030) 06/14/23 11:04 Urine Protein Neg (Negative) 06/14/23 11:04 Urine Glucose (UA) Norm (Normal) 06/14/23 11:04 Urine Ketones Negative (Negative) 06/14/23 11:04 Urine Blood Neg (Negative) 06/14/23 11:04 Urine Nitrate Negative (Negative) 06/14/23 11:04 Urine Bilirubin Neg (Negative) 06/14/23 11:04 Urine Urobilinogen Norm mg/dL (Negative) 06/14/23 11:04 Ur Leukocyte Esterase 1+ (Negative) H 06/14/23 11:04 Urine RBC 5-10 /hpf (0-2) H 06/14/23 11:04 Urine WBC 5-10 /hpf (0-5) H 06/14/23 11:04 Ur Squamous Epith Cells 5-10 /hpf (0-5) H 06/14/23 11:04 Ur Renal Epithelial Cell Rare /hpf 06/14/23 11:04 Amorphous Sediment Not Reportable 06/14/23 11:04 Urine Bacteria Trace /hpf (NONE) 06/14/23 11:04 Urine Mucus Trace /hpf 06/14/23 11:04 Urine HCG, Qual Negative (Negative) 06/14/23 10:52 Blood Type A Positive 06/14/23 11:20 Rho(D) Type Positive 06/14/23 11:20 Antibody Screen Negative 06/14/23 11:20 Vitals Last Vital Signs Temp 98.9 F 06/15/23 03:55 Pulse 62 06/15/23 03:55 Resp 17 06/15/23 03:55 BP 99/57 06/15/23 03:55 Pulse Ox 97 06/15/23 01:45 O2 Del Method Room Air 06/15/23 01:45 O2 Flow Rate 6 06/14/23 17:23 Discharge Plan Discharge Patient Disposition: Home Condition: Stable Prescriptions: New hydrocodone-acetaminophen 5-325 mg tablet 1 tab PO Q4H PRN (Reason: pain) Qty: 20 0RF acetaminophen 325 mg capsule 325 mg PO Q4H PRN (Reason: fever or pain) Qty: 60 0RF ibuprofen 800 mg tablet 800 mg PO TID PRN (Reason: pain) Qty: 60 0RF Continued ibuprofen 800 mg tablet 800 mg PO TID PRN (Reason: dysmenorrhea,pelvic pain) Discharge Orders: Discharge Order (Routine); Ordered 06/15/23 Ordered By: Brady Morris Referrals: Brady Morris MD [Physician] - 2 weeks Discharge Diet: Usual diet Discharge Activity: Limit activity as instructed Patient Instructions: Opioid Safety, Laparoscopy, Exploratory Laparoscopy (GEN), Ovarian Cyst Removal (GEN) Activity Restrictions/Additional Instructions: 1. Please call [facility] on next working day to make your post-operative appointment in 2 weeks. 2. Please stay home until you come back to the clinic on first post- hospatilization check up. 3. Please follow instructions on your medications CAREFULLY. 4. If you have abdominal incision, do not cover it unless dressing is necessary because of drainage. OK to shower, but avoid bath. Leave steri-strips until they fall off. If they are still on one week after surgery, you may remove them. 5. If you had vaginal surgery or vaginal repair, Dr. Morris may instruct you to take SITZ bath. 6. Yellow, blood tinged odorous vaginal discharge is usually normal after hysterectomy or vaginal surgeries. 7. No SEXUAL INTERCOURSE, tampons, or douches until you are completely released from the post-operative care. 8. Avoid constipation by eating right and maybe using some Metamucil or Milk of Magnesia. 9. All prescription refills are given during the working hours. Please do no wait till it runs out. Call the clinic at [phone] before your medication runs out. The clinic will get in touch with your doctor to prescribe medications if necessary. 10. Please remain within 40 mile radius from our hospital because emergencies do happen now and then during the post-operative period. 11. If you have stairs at home, take one step at a time slowly and minimize the number of trips. It helps to stay in one floor for the next few days. No lifting except what you can lift by one hand until you are released from the post-operative care. 12. Driving is discouraged until you are well healed. It may be 3-4 weeks before you feel strong enough to drive. You should be able to turn and look through the rear window without pain and you should be able to push the brake pedal very hard without pain before you drive. No fast rules, but SAFETY should be your primary concern. DO NOT drive if you are on sedating medications such as narcotics. 13. Call the clinic (during working hours) to make urgent appointment or go to the Emergency room, if any of the following occurs: i. Vaginal bleeding becomes heavy, more than a period. ii. Incision becomes red and sore, or drains pus. iii. Your TEMPERATURE is over 100.4F or you have chill. iv. IV site becomes red and swollen (a little ``knot?? is usually OK) v. Persistent nausea and vomiting vi. Persistent constipation or diarrhea vii. Rash or allergic reaction to medications. Discharge Attestations CHOCOLATE REFINING ROLLER Time Spent in Discharge Care*: greater than 30 min Coding Level of Care Code Acute Code for Chg Fwd Diagnoses
[2023-06-15 09:52] VITALS: BP 105/54; PULSE 67; RESP 17; TEMP 37.2
[2023-06-15] MEDS: docusate sodium 100 mg Capsule PO (11:11)
[2023-06-15 11:58] VITALS: BP 102/57; PULSE 67; RESP 17; TEMP 37.2
--- NOTE | 2023-06-16 14:41 | ANE.PACU2 ---
Inpatient post-anesthesia follow up: Airway intact: Yes Vital signs: Temperature 98.9 F Pulse Rate 67 Respiratory Rate 17 Blood Pressure 102/57 Pulse Oximetry 97 Oxygen Delivery Me thod Room Air Oxygen Flow Rate 6 Fraction of Inspir ed Oxygen Hydration adequate: Yes Nausea and vomiting: No Pain level: 1
== END 2023-06-15 11:59 | disposition home or self-care (01) ==
LOC: OBGYN 06-15 06:29
PROVIDERS: Admitting Provider Obstetrics & Gynecology; PCP Family Medicine; Visit Provider Obstetrics & Gynecology
PROC: (CPT 49320; principal; 2023-06-14 12:10)
PROC: (CPT 58720; 2023-06-14 12:10)
PROC: (CPT 49000; 2023-06-14 12:10)
PROC: (CPT 58999; 2023-06-14 12:10)
DX: D27.0 Benign neoplasm of right ovary (principal)
CPT/HCPCS: 58940; 58999; 36415; 80053; 81001; 84703; 85025; 85027; 86850; 86900; 88305; C9290; G0378; J0690; J1100; J1170; J1200; J1885; J2175; J2250; J2405; J2704; J2710; J2795; J3010; J3490; J7030; J7040; J7121

== ENCOUNTER → 2024-11-12 10:22 | Outpatient (BNVA) | payer OTHER, SELFPAY | PROVIDERS: PCP Family Medicine; Visit Provider Obstetrics & Gynecology | DX: R10.2 Pelvic and perineal pain (principal); G89.29 Other chronic pain | CPT/HCPCS: 76830 ==